=== PATIENT | male | born 1935 | race African-American/Black ===

== ENCOUNTER 2019-06-20 08:16 | Emergency (ER) | payer MEDICARE ==
[~2019-06-20] VITALS: Ht 185.4 cm; Wt 88.0 kg
[2019-06-20 08:48] VITALS: BP 134/65
--- NOTE | 2019-06-20 09:21 | PHYS DOC ---
Past Medical History Past Medical History: CHF, Depression, High Cholesterol, Hypertension Additional Past Medical Histor: BPH Past Surgical History: No Surgical History Alcohol Use: Rarely Drug Use: None Adult General Chief Complaint Chief Complaint: SHOULDER INJURY [facility] HPI Patient is a 83 year old right-handed male who presents with complaining of right shoulder injury. Patient states he had an accidental fall from a standing position 5 days ago and landed on right shoulder without other injuries or loss of consciousness. Patient complaining of constant right shoulder pain that getting worse with movement. Patient was seen by his primary care physician yesterday and was told to come to emergency room. Patient did not take any pain medication at home and rated his pain 7/10 but doesn't want to have pain medic ation in ER. Review of Systems Review of Systems Constitutional: Denies fever or chills [] Eyes: Denies change in visual acuity, redness, or eye pain [] HENT: Denies nasal congestion or sore throat [] Respiratory: Denies cough or shortness of breath [] Cardiovascular: No additional information not addressed in HPI [] GI: Denies abdominal pain, nausea, vomiting, bloody stools or diarrhea [] : Denies dysuria or hematuria [] Musculoskeletal: Denies back pain, reports joint pain [] Integument: Denies rash or skin lesions [] Neurologic: Denies headache, focal weakness or sensory changes [] Endocrine: Denies polyuria or polydipsia [] All other systems were reviewed and found to be within normal limits, except as documented in this note. Allergies Allergies Allergies Coded Allergies Type Severity Reaction Last Updated Verified Penicillins Allergy Unknown 06/20/19 Yes Physical Exam Physical Exam Constitutional: Well developed, well nourished, mild distress, non-toxic appearance. [] HENT: Normocephalic, atraumatic. Eyes: PERRLA, EOMI, conjunctiva normal, no discharge. [] Neck: Normal range of motion, no tenderness, supple, no stridor. [] Cardiovascular:Heart rate regular rhythm, no murmur [] Lungs & Thorax: Bilateral breath sounds clear to auscultation [] Extremities: Right shoulder he does deformity or edema contusion, pain for range of motion, no neurovascular deficit . Neurologic: Alert and oriented X 3, no focal deficits noted. [] Psychologic: Affect normal, judgement normal, mood normal. [] Current Patient Data Vital Signs Vital Signs Date Time Temp Pulse Resp B/P (MAP) Pulse Ox O2 Delivery O2 Flow Rate FiO2 06/20/19 08:48 97.7 76 16 134/65 (88) 100 Room Air 97.7 EKG EKG [] Radiology/Procedures Radiology/Procedures [id number] [place] [address] IMAGING REPORT Signed PATIENT: JOEY ROSS ACCOUNT: [id number] : 1935 LOCATION: ER AGE: 83 SEX: M EXAM STATUS: REG ER ORD. PHYSICIAN: RIVKA HARRELL MD REASON: fall 4 days ago PROCEDURE: SHOULDER 2+V RIGHT Examination: SHOULDER 2+V RIGHT History: Fall 4 days ago, pain Comparison/Correlation: None Findings: Total of 3 images of the right shoulder were obtained. Acromioclavicular joint space narrowing is present with spurring. Glenohumeral joint relationship is unremarkable with mild glenoid remodeling. Deformity of the inferior aspect of the glenoid on the internal rotation view is evident. Right upper lung field is clear. Impression: Right inferior glenoid deformity is suspected raising question of fracture. Consider further imaging with CT for more definitive assessment. Electronically signed by: Honorio Canales MD (06/20/2019 9:17 AM) [facility] DICTATED and SIGNED BY: HONORIO CANALES MD DATE: 06/20/19 0917 [][address] [address] IMAGING REPORT Signed PATIENT: JOEY ROSS ACCOUNT: [id number] : 1935 LOCATION: ER AGE: 83 SEX: M EXAM STATUS: REG ER ORD. PHYSICIAN: RIVKA HARRELL MD REASON: Right shoulder questionable fracture CT without contrast only PROCEDURE: CT UPPR EXTREMTY WO CONTRST RT EXAM: CT right shoulder without IV contrast DATE: 06/20/2019 9:36 AM COMPARISON: Radiographs 06/20/2019 INDICATION: Right shoulder pain, suspected fracture on prior radiographs. TECHNIQUE: CT of the right shoulder was performed without IV contrast. Axial, coronal and sagittal reformatted images were generated. PQRS compliance statement - One or more of the following individualized dose reduction techniques were utilized for this study: 1. Automated exposure control 2. Adjustment of the mA and/or kV according to patient size 3. Use of iterative reconstruction technique FINDINGS: There is no evidence for acute fracture or dislocation. The abnormality seen on prior radiograph likely relates to prominent inferior glenoid osteophytes and associated summation artifact. AC joint degenerative changes are also seen with inferior projecting osteophytes and associated capsular hypertrophy. Borderline high riding humeral head with coracohumeral distance measuring 8 mm. Moderate right glenohumeral joint effusion is seen. No significant rotator cuff muscle fatty atrophy. On this marginal evaluation of the right lung there is a 6 mm spiculated right upper lobe lung nodule (series 2 image 102). Associated small satellite nodule seen on the same slice measuring 3 mm. A 4 mm right upper lobe lung nodule (series 2 image 94) is seen. In addition a pleural-based 4 mm right upper lobe lung nodule (series 2 image 90) is noted. IMPRESSION: 1. No evidence of acute fracture or dislocation. 2. Right glenohumeral joint effusion. 3. Right glenohumeral and a.c. Joint osteoarthritis. 4. Multiple bilateral lung nodules are seen including a spiculated 6 mm lung nodule. Evaluation with dedicated CT chest is recommended. Electronically signed by: Kb Mcfarland MD (06/20/2019 10:02 AM) [facility] DICTATED and SIGNED BY: KB MCFARLAND MD DATE: 06/20/19 1002 Course & Med Decision Making Course & Med Decision Making Pertinent Imaging studies reviewed. (See chart for details) Evaluation of patient in ER showed 83-year-old male patient with injury to right shoulder is unremarkable physical exam and CT of the shoulder. Shoulder sling was applied and prescription for hydrocodone was given and patient was advised to follow-up with his primary care physician. I've spoken with the patient and/or caregivers. I've explained the patient's condition, diagnosis and treatment plan based on information available to me at this time. I've answered the patient's and/or caregivers questions and addressed any concerns. The patient and/or caregivers have a good understanding the patient's diagnosis, condition and treatment plan as can be expected at this point. Vital signs have been stabilized. The patient's condition is stable for discharge from the emergency department. The patient will pursue further outpatient evaluation with her primary care provider or other designated consulting physician as outlined in the discharge instructions. Patient and/or caregivers are agreeable to this plan of care and follow-up instructions have been explained in detail. The patient and/or caregivers have received these instructions in written format and expressed understanding of these discharge instructions. The patient and her caregivers are aware that if any significant change in condition or worsening of symptoms should prompt him to immediately return to this of the closest emergency department. If an emergent department is not readily available I would encourage him to call 911. Dragon Disclaimer Dragon Disclaimer This electronic medical record was generated, in whole or in part, using a voice recognition dictation system. Departure Departure Impression: Primary Impression: Sprain of right shoulder Additional Impressions: Fall at home Lung nodule seen on imaging study Disposition: HOME, SELF-CARE (at 1025) Condition: STABLE Referrals: Gato RUSS MD (PCP) Patient Instructions: Fall Prevention and Home Safety, Shoulder Sprain Additional Instructions: Apply ice on the affected area Follow-up with your primary care physician in 3-5 days Return to ER if not getting better Scripts Hydrocodone/Apap 5-325 (NORCO 5-325 TABLET) 1 Each Tablet 1 TAB PO PRN Q6HRS PRN for PAIN, #20 TAB 0 Refills Prov: RIVKA HARRELL MD 06/20/19 Problem Qualifiers Primary Impression: Sprain of right shoulder Encounter type: initial encounter Shoulder sprain type: unspecified sprain Qualified Codes: S43.401A - Unspecified sprain of right shoulder joint, initial encounter Additional Impressions: Fall at home Encounter type: subsequent encounter Qualified Codes: W19.XXXD - Unspecified fall, subsequent encounter; Y92.009 - Unspecified place in unspecified non-institutional (private) residence as the place of occurrence of the external cause RIVKA HARRELL MD Jun 20, 2019 09:20
--- NOTE | 2019-06-20 10:05 | RAD ---
EXAM: CT right shoulder without IV contrast DATE: 06/20/2019 9:36 AM COMPARISON: Radiographs 06/20/2019 INDICATION: Right shoulder pain, suspected fracture on prior radiographs. TECHNIQUE: CT of the right shoulder was performed without IV contrast. Axial, coronal and sagittal reformatted images were generated. PQRS compliance statement - One or more of the following individualized dose reduction techniques were utilized for this study: 1. Automated exposure control 2. Adjustment of the mA and/or kV according to patient size 3. Use of iterative reconstruction technique FINDINGS: There is no evidence for acute fracture or dislocation. The abnormality seen on prior radiograph likely relates to prominent inferior glenoid osteophytes and associated summation artifact. AC joint degenerative changes are also seen with inferior projecting osteophytes and associated capsular hypertrophy. Borderline high riding humeral head with coracohumeral distance measuring 8 mm. Moderate right glenohumeral joint effusion is seen. No significant rotator cuff muscle fatty atrophy. On this marginal evaluation of the right lung there is a 6 mm spiculated right upper lobe lung nodule (series 2 image 102). Associated small satellite nodule seen on the same slice measuring 3 mm. A 4 mm right upper lobe lung nodule (series 2 image 94) is seen. In addition a pleural-based 4 mm right upper lobe lung nodule (series 2 image 90) is noted. IMPRESSION: 1. No evidence of acute fracture or dislocation. 2. Right glenohumeral joint effusion. 3. Right glenohumeral and a.c. Joint osteoarthritis. 4. Multiple bilateral lung nodules are seen including a spiculated 6 mm lung nodule. Evaluation with dedicated CT chest is recommended. Electronically signed by: Kb Coyle MD (06/20/2019 10:02 AM) [facility]
[2019-06-20] MEDS ORDERED: HYDR-3164 PO (10:27)
== END 2019-06-20 10:37 | disposition home or self-care (01) ==
LOC: ER 08:16
DX: S43.491A Other sprain of right shoulder joint, initial encounter (principal); R91.1 Solitary pulmonary nodule; I11.0 Hypertensive heart disease with heart failure; I50.9 Heart failure, unspecified; F32.9 Major depressive disorder, single episode, unspecified; E78.00 Pure hypercholesterolemia, unspecified; Z88.0 Allergy status to penicillin; W18.39XA Other fall on same level, initial encounter; Y93.89 Activity, other specified; Y92.009 Unspecified place in unspecified non-institutional (private) residence as the place of occurrence of the external cause; Y99.8 Other external cause status
CPT/HCPCS: 73030; 73200; 99284

== ENCOUNTER → 2019-06-30 | Outpatient (CLI) | payer MEDICARE ==
[2019-06-20 08:48] VITALS: BP 134/65
[~2019-06-30] MED LIST: HYDR-3164 PO; IOHEXOL 300 MG/ML 100ML VIAL. IV ONE
--- NOTE | 2019-06-30 16:59 | RAD ---
EXAM: Chest CT with and without intravenous contrast. HISTORY: Pulmonary nodule. TECHNIQUE: Computed tomographic images of the chest were obtained prior to and following the administration of 75 cc Omnipaque 300 intravenous contrast. Multiplanar reformatting was performed. *One or more of the following individualized dose reduction techniques were utilized for this examination: 1. Automated exposure control. 2. Adjustment of the mA and/or kV according to patient size. 3. Use of iterative reconstruction technique. COMPARISON: Upper extremity CT dated 06/20/2019. FINDINGS: The exam is slightly limited due to respiratory motion. There are several noncalcified pulmonary nodules, the largest of which is a nodule with suspected spiculated margins within the lateral inferior right upper lobe adjacent to the pleura measuring 8 mm. There are 3 mm nodules within the adjacent major and minor fissures which are likely fissural lymph nodes. There is also a 6 mm nodule within the posterior right upper lobe along the pleural fissure. There is a 5 mm pleural-based nodule along the lateral right upper lobe. There is an accessory left pleural fissure, a normal variant. There is bilateral basilar and posterior dependent atelectasis. No consolidation, pleural effusion or pneumothorax is seen. The heart is upper normal in size. There is coronary artery and aortic atherosclerosis. There is a bovine aortic arch branching pattern with common origin of the innominate and left common carotid arteries. This is a normal variant. No pathologically enlarged lymph node is seen. There are few calcified granulomas. Evaluation of the upper abdomen demonstrates several renal cysts, the largest of which is partially excluded from the [id number] within the right kidney measuring 4.6 cm. There are degenerative changes involving the thoracic spine. No suspicious osseous lesion is seen. IMPRESSION: 1. Multiple right-sided pulmonary nodules, the largest of which is a spiculated nodule within the lateral posterior right upper lobe measuring 8 mm. This is likely still too small to characterize with PET/CT. There are few additional nonspecific pulmonary nodules, some of which are likely fissural lymph nodes. Short-term follow-up in 3 months is recommended. 2. Slightly limited exam due to respiratory motion. 3. Multiple renal cysts. Fleischner Society recommendations (Radiology 2017): SOLID NODULES Solitary solid nodule <6 mm - low-risk patient: no routine follow-up required - high-risk patient: optional CT at 12 months (particularly with suspicious nodule morphology and/or upper lobe location) Solitary solid nodule 6-8 mm - low-risk patient: CT at 6-12 months, then consider CT at 18-24 months - high risk patient: CT at 6-12 months, then if persistent CT at 18-24 months Solitary solid nodule >8 mm - consider CT at 3 months, PET/CT, or tissue sampling Multiple solid nodules <6 mm - low-risk patient: no routine follow-up required - high-risk patient: optional CT at 12 months Multiple solid nodules >6 mm - low-risk patient: CT at 3-6 months, then consider CT at 18-24 months - high risk patient: CT at 3-6 months, then if persistent CT at 18-24 months SUBSOLID NODULES Solitary ground glass nodule <6 mm - no routine follow-up required Solitary ground glass nodule > or = 6 mm - CT at 6-12 months, then if persistent CT every 2 years until 5 years Solitary part solid nodule > or = 6mm - CT at 3-4 months, the if persistent and solid component remains <6 mm, annual CT until 5 years Multiple subsolid nodules <6 mm - CT at 3-6 months, then if stable consider CT at 2 and 4 years in high risk patients Multiple subsolid nodules > or = 6 mm - CT at 3-6 months, then subsequent management based on the most suspicious nodule(s) Electronically signed by: Alida Benavides MD (06/30/2019 4:55 PM) [place] [id number]
== END | disposition home or self-care (01) ==
LOC: CT 13:08
PROVIDERS: ATTEND Family Medicine
DX: R91.8 Other nonspecific abnormal finding of lung field (principal); J98.11 Atelectasis; I25.10 Atherosclerotic heart disease of native coronary artery without angina pectoris; I70.0 Atherosclerosis of aorta; N28.1 Cyst of kidney, acquired; J84.10 Pulmonary fibrosis, unspecified
CPT/HCPCS: 71270; Q9967

== ENCOUNTER → 2020-06-27 | Outpatient (CLI) | payer MEDICARE ==
[~2020-06-27] MED LIST changes: -IOHEXOL 300 MG/ML 100ML VIAL. IV ONE
--- NOTE | 2020-06-27 16:32 | RAD ---
EXAM: CT CHEST WITHOUT CONTRAST HISTORY: Lung nodule COMPARISON: CT chest 06/30/2019 TECHNIQUE: Helical CT of the chest performed without contrast. Coronal and sagittal reformats were obtained. One or more of the following individualized dose reduction techniques were utilized for this examination: 1. Automated exposure control 2. Adjustment of the mA and/or kV according to patient size 3. Use of iterative reconstruction technique. FINDINGS: Thyroid gland and thoracic inlet: Normal. Heart and great vessels: The heart is normal in size. There are coronary artery calcifications. No pericardial effusion. The thoracic aorta is normal in caliber. Mediastinum and salvador: No lymphadenopathy. Lungs and pleura: There are multiple unchanged small pulmonary nodules in the right lung. The largest is a 7 mm subpleural pulmonary nodule in the inferior lateral right upper lobe (image 136, series 8). This has slightly irregular margins. There is an adjacent 3 mm pulmonary nodule is unchanged. Additional formatter pulmonary nodule in the posterior right upper lobe abutting the pleura in image 24, series 6). There is a 4 mm juxta fissural nodule and a 5 mm subpleural pulmonary nodule in the superior segment of the right lower lobe (image 154.60, series 8). No definite new pulmonary nodules. There is mild airway wall thickening. No pleural effusion. Chest wall and axillae: No axillary lymphadenopathy. Upper abdomen: Cholelithiasis. There is a large simple right renal cyst measuring 6 cm. Bones: There are healing left lateral fourth, fifth, sixth, and seventh rib fractures. No acute osseous abnormality. IMPRESSION: 1. Unchanged small pulmonary nodules in the right lung including the slightly irregular 7 mm pulmonary nodule in the inferior right upper lobe. No new pulmonary nodules. 2. Multiple healing left rib fractures, new from prior exam. 3. Cholelithiasis. Electronically signed by: Chanel Waldron MD (06/27/2020 4:29 PM) [id number]
== END ==
LOC: CT 12:43
PROVIDERS: ATTEND Family Medicine
DX: R91.1 Solitary pulmonary nodule (principal); K80.20 Calculus of gallbladder without cholecystitis without obstruction; N28.1 Cyst of kidney, acquired; S22.49XD Multiple fractures of ribs, unspecified side, subsequent encounter for fracture with routine healing; X58.XXXD Exposure to other specified factors, subsequent encounter
CPT/HCPCS: 71250